=== PATIENT | female | born 1955 | race Caucasian/White ===

== ENCOUNTER 2025-01-04 10:58 | Outpatient (AMB) | payer OTHER, SELFPAY ==
--- OUTSIDE RECORDS SUMMARY | 2025-01-01 13:30 | XMS_ITS | Encounter Summary ---
Author Organization [facility] Address [address] [place] [address] Care Team Providers Care Licensed Final Expense Agents Name Role Phone Nathaniel Felipe MD Primary Care Provider [phone] Encounter Details Date Type Department Care Team ([facility] st Contact Info) Description 01/01/2025 1:30 PM EST Lab Draw Station [address] [address] Acute deep vein thrombosis (DVT) of calf muscle vein of left lower extremity (CMS/HCC V24, CMS/HCC V28); Other acute pulmonary embolism without acute cor pulmonale (CMS/HCC V24, CMS/HCC V28) Social History Tobacco Use Types Packs/Day Years Used Date Smoking Tobacco: Never Smokeless Tobacco: Never Alcohol Use Standard Drinks/Week Comments Yes 0 (1 standard drink = 0.6 oz pur e alcohol) Housing Instability Answer Date Recorde d Are you worried that in the next 2 months you may not have stable housing? No 01/13/2024 Food Access & Nutrition Answer Date Rec orded Do you have access to a vari ety of food including fruits and vegetables? Yes 01/13/2024 Access to Healthcare Answer Date Record ed Within the last 3 months, ho w many times did you visit the emergency department for your medical care? 0 01/13/2024 Health Literacy Answer Date Recorded How often do you need to hav e someone help you when you read instructions, pamphlets, or other written material from your doctor or pharmacy? Sometimes 01/13/2024 Caregiver: How often do you need to have someone help you when you read instructions, pamphlets, or other written material from your doctor or pharmacy? Not on file 01/13/2024 Financial Risk Answer Date Recorded How hard is it for you to pa y for the very basics like food, housing, medical care, and air conditioning / heating? Somewhat hard 01/13/2024 Transportation Answer Date Recorded Has the lack of transportati on kept you from meetings, work, or from getting things needed for daily living? No Has the lack of transportati on kept you from medical appointments or from getting medications? No 01/13/2024 Social Isolation Answer Date Recorded How often do you feel lonely or isolated from those around you? Sometimes 01/13/2024 Food Risk Answer Date Recorded Within the past 12 months we worried whether our food would run out before we got money to buy more. Never true 024 Within the past 12 months th e food we bought just didn't last and we didn't have money to get more. Sometimes true 01/13/2024 Dependent Care Answer Date Recorded Do you need help finding or paying for care for your loved ones. For example, child care leader or elderly care for an older adult? No 01/13/2024 Education Answer Date Recorded Do you think completing more education or training, like finishing a GED, going to college, or learning a trade, would be helpful for you? No 01/13/2024 Employment and Income Answer Date Recor ded During the last four weeks, have you been actively looking for work? No 01/13/2024 Living Situation Answer Date Recorded What is your living situation? Unrecognized valu e 01/13/2024 Comments No Sex and Gender Information Value Date Recorded Sex Assigned at Not on file Legal Sex Female 3:41 PM EST Gender Identity Not on file Sexual Orientation Not on file documented as of this encounter Plan of Treatment Upcoming Encounters Date Type Department Care Team (Late st Contact Info) Description 01/05/2025 1:45 PM EST Office Visit Adult Medicine [address] [phone] Nathaniel Felipe MD [address] [place] [address] 01/10/2025 11:00 AM EST Office Visit [facility] Hematology Oncology [address] [place] [phone] Cynthia Arellano MD [address] [place] [address] 01/15/2025 1:00 PM EST Office Visit Orthopedic Surgery [facility] [address] [phone] Feliciano Smith DPM [address] [phone] 04/12/2025 9:00 AM EST Procedure visit General Surgery [facility] [address] [phone] Uli Leger MD [address] [address] Pending Results Name Type Priority Associated Diagnoses Date /Time Prothrombin [id number] mutation analysis Lab Routine Acute deep vein thrombosis (DVT) of calf muscle vein of left lower extremity (CMS/HCC V24, CMS/HCC V28) Other acute pulmonary embolism without acute cor pulmonale (CMS/HCC V24, CMS/HCC V28) 01/01/2025 1:35 PM EST Factor V leiden Lab Routine Acute deep vein thrombosis (DVT) of calf muscle vein of left lower extremity (CMS/HCC V24, CMS/HCC V28) Other acute pulmonary embolism without acute cor pulmonale (CMS/HCC V24, CMS/HCC V28) 01/01/2025 1:35 PM EST documented as of this encounter Procedures Procedure Name Priority Date/Time Associated Diagnosis Comments PROTEIN S ACTIVITY Routine 01/01/2025 1: 35 PM EST Acute deep vein thrombosis (DVT) of calf muscle vein of left lower extremity (CMS/HCC V24, CMS/HCC V28) Other acute pulmonary embolism without acute cor pulmonale (CMS/HCC V24, CMS/HCC V28) PROTEIN C ACTIVITY Routine 01/01/2025 1: 35 PM EST Acute deep vein thrombosis (DVT) of calf muscle vein of left lower extremity (CMS/HCC V24, CMS/HCC V28) Other acute pulmonary embolism without acute cor pulmonale (CMS/HCC V24, CMS/HCC V28) CARDIOLIPIN ANTIBODIES, IGG, IGM AND IGA Routine 01/01/2025 1:35 PM EST Acute deep vein thrombosis (DVT) of calf muscle vein of left lower extremity (CMS/HCC V24, CMS/HCC V28) Other acute pulmonary embolism without acute cor pulmonale (CMS/HCC V24, CMS/HCC V28) ANTITHROMBIN III ACTIVITY Routine 01/01/2025 1:35 PM EST Acute deep vein thrombosis (DVT) of calf muscle vein of left lower extremity (CMS/HCC V24, CMS/HCC V28) Other acute pulmonary embolism without acute cor pulmonale (CMS/HCC V24, CMS/HCC V28) documented in this encounter Results * Protein C activity (01/01/2025 1:35 PM EST) Protein C Activity 119 70 - 130 % 01/04/2025 10:19 AM EST [facility] Comment: Heparin levels up to 1 IU/mL do not affect test results. Higher levels may cause elevated levels. Test performed at [facility], [address] , [place] [address] Marlen Fernández MD, PhD - Remediation Technician Blood Venous blood specimen / Unknown Venipuncture / Unknown 01/01/2025 1:35 PM EST 01/01/2025 1:35 PM EST us Cynthia Arellano MD LAB BLOOD ORDERABLES Final R esult [facility] [address] [place] [address] * Protein S activity (01/01/2025 1:35 PM EST) Pathologist [facility] Protein S Activity 90 65 - 140 % 2024 10:[address] [facility] Comment: Heparin levels up to 1 IU/mL do not affect test results; higher levels may cause false elevation. Thrombin inhibitors and direct oral anticoagulants may lead to over-estimation of proein S level by this assay. Note that measurement of protein S or free protein S antigen levels would be less affected by medication. Test performed at [facility], [address] [place] [address] Marlen Fernández MD, PhD - Remediation Technician Blood Venous blood specimen / Unknown Venipuncture / Unknown 01/01/2025 1:35 PM EST 01/01/2025 1:35 PM EST Cynthia Arellano MD LAB BLOOD ORDERABLES Final R esult Performing Organization Address [facility] Co de Phone Number [facility] [address] [place] [address] * Antithrombin III activity (01/01/2025 1:35 PM EST) [facility] Antithrombin III Activity 114 80 - 120 % 01/04/2025 10:[address] [facility] Comment: AT3 Activity is affected by thrombin inhibitors. Test performed at [facility], [address] [place] [address] Marlen Fernández MD, PhD - Remediation Technician Blood Venous blood specimen / Unknown Venipuncture / Unknown 01/01/2025 1:35 PM EST 01/01/2025 1:35 PM EST Cynthia Arellano MD LAB BLOOD ORDERABLES Final R esult Performing Organization Address City/[facility]/ZIP Co de Phone Number [facility] [address] [place] [address] * Cardiolipin antibodies, IgG, IgM and IgA (01/01/2025 1:35 PM EST) [facility] Cardiolipin Antibody Screen Negative Negative LAB CHEMISTRY METHOD 01/02/2025 3:08 PM EST [facility] Blood Venous blood specimen / Unknown Venipuncture / Unknown 01/01/2025 1:35 PM EST 01/01/2025 1:35 PM EST us Cynthia Arellano MD LAB BLOOD ORDERABLES Final R esult [facility] [address] [place] [address], documented in this encounter Visit Diagnoses Diagnosis Acute deep vein thrombosis (DVT) of calf muscle vein of left lower extremity (CMS/HCC V24, CMS/HCC V28) Other acute pulmonary embolism without acute cor pulmonale (CMS/HCC V24, CMS/[facility] V28) documented in this encounter Additional Health Concerns Assessment Noted Time PHQ-9 Depression Total Score: 17 05/21/ 025 11:07 AM EDT documented as of this encounter Care Teams Licensed Final Expense Agents Relationship Specialty Start Date End Date Nathaniel Felipe MD [address] [place] [address] PCP - General Internal Medicine 06/24/21 documented as of this encounter
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
[2025-01-04 11:14] VITALS: BMI 40.2
--- OUTSIDE RECORDS SUMMARY | 2025-01-04 13:41 | XMS_ITS | Encounter Summary ---
Author Organization [facility] Address [address] [place] [address] Care Team Providers Care Burnisher And Bumper Name Role Phone Nathaniel Felipe MD Primary Care Provider [phone] Reason for Referral * Imaging (Routine) - Closed Specialty Diagnoses / Procedures Referred By Contac t Referred To Contact Radiology Diagnoses Scalp cyst Procedures US Head Neck Soft Tissue Nathaniel Felipe MD [address] [place] [address] Phone: tel: fax: [address] Phone: tel: Referral ID Status Reason Start Date Expiration Date Visits Re quested Visits Authorized [id number] Closed 12/05/2024 12/05/2025 1 1 Encounter Details Date Type Department Care Team (Late st Contact Info) Description 12/05/2024 Results Follow-Up Adult Medicine [address] [phone] Nathaniel Felipe MD [address] [place] [address] Social History Tobacco Use Types Packs/Day Years [...] for your loved ones. For example, child development assistant or elderly care for an older adult? [...] 1:45 PM EST Office Visit Adult Medicine [facility] [address] [place] [address] Nathaniel Felipe MD [address] [place] [address] 01/10/2025 11:00 AM EST Office Visit [facility] Hematology Oncology [address] [place] [phone] Cynthia Arellano MD [address] [place] [address] 01/15/2025 1:00 PM EST Office Visit Orthopedic Surgery [facility] [address] [phone] Feliciano Smith DPM [address] [phone] 04/12/2025 9:00 AM EST Procedure visit General Surgery [facility] [address] [phone] Uli Leger MD [address] [address] documented as of this encounter Results * US Head Neck Soft Tissue (12/19/2024 2:09 PM EDT) Anatomical Region Laterality Modality Head and Neck Ultrasound 12/19/2024 2:49 PM EDT Impressions 12/19/2024 2:51 PM EDT Area of clinical concern may correspond to sebaceous cyst. Correlate with direct palpation to ensure long-term stability -------- FINAL REPORT -------- Dictated By: Marcos Montero Dictated Date: 12/19/2024 14:49 ET Assigned Physician: Marcos Montero Reviewed and Electronically Signed By: Marcos Montero Signed Date: 12/19/2024 14:51 ET Workstation ID: [id number] Transcribed By: Self Edit Transcribed Date: 12/19/2024 14:49 ET Narrative 12/19/2024 2:51 PM EDT EXAMINATION: US HEAD NECK SOFT TISSUE 12/19/2024 2:09 PM Patient : 1955 CLINICAL DATA/INDICATIONS: Cystic swelling of the scalp/abnormal x-ray COMPARISON: None TECHNIQUE: Multiple grayscale images of the subcutaneous soft tissues of the scalp were obtained in area of clinical concern. FINDINGS: Area of palpable concern corresponds to an ovoid hypoechoic lesion measuring 1.0 x 0.4 x 0.8 cm within the skin surface without vascularity. Procedure Note Marcos Montero MD - 12/19/2024 EXAMINATION: US HEAD NECK SOFT TISSUE 12/19/2024 2:09 PM Patient :1955 CLINICAL DATA/INDICATIONS: Cystic swelling of the scalp/abnormal x-ray COMPARISON: None TECHNIQUE: Multiple grayscale images of the subcutaneous soft tissues ofthe scalp were obtained in area of clinical concern. FINDINGS: Area of palpable concern corresponds to an ovoid hypoechoic lesionmeasuring 1.0 x 0.4 x 0.8 cm within the skin surface withoutvascularity. IMPRESSION: Area of clinical concern may correspond to sebaceous cyst. Correlate withdirect palpation to ensure long-term stability -------- FINAL REPORT -------- Dictated By: Marcos Montero Dictated Date: 12/19/2024 14:49 ET Assigned Physician: Marcos Montero Reviewed and Electronically Signed By: Marcos Montero Signed Date: 12/19/2024 14:51 ET Workstation ID: [id number] Transcribed By: Self Edit Transcribed Date: 12/19/2024 14:49 ET us Nathaniel Felipe MD [facility] PROCEDURES Final Res ult documented in this encounter Visit Diagnoses Diagnosis Scalp cyst- Primary Sebaceous cyst Scalp cyst Sebaceous cyst documented in this encounter Additional Health Concerns Assessment Noted Time PHQ-9 Depression Total Score: 17 05/21/ 025 11:07 AM EDT documented as of this encounter Care Teams Burnisher And Bumper Relationship Specialty Start Date End Date Nathaniel Felipe MD [address] [place] [address] PCP - General Internal Medicine 06/24/21 documented as of this encounter
--- OUTSIDE RECORDS SUMMARY | 2025-01-04 13:41 | XMS_ITS | Encounter Summary ---
Author Organization [facility] Address [address] [place] [address] Care Team Providers Care Allied Health Professional Name Role Phone Nathaniel Felipe MD Primary Care Provider [phone] Reason for Referral * Consultation (Routine) - Closed Specialty Diagnoses / Procedures Referred By Contac t Referred To Contact General Surgery Diagnoses Sebaceous cyst Nathaniel Felipe MD [address] [place] [address] Phone: tel: fax: Josh Lyon MD [address] [address] Phone: tel: fax: Referral ID Status Reason Start Date Expiration Date V isits Requested Visits Authorized [id number] Closed Specialty Services Required 12/19/2024 12/19/2025 12 1 Encounter Details Date Type Department Care Team (Late st Contact Info) Description 12/19/2024 Results Follow-Up General Surgery - [place] [facility] [address] [place] [address] Nathaniel Felipe MD [address] [place] [address] Social History Tobacco Use Types Packs/Day Years [...] care for your loved ones. For example, exceptional children's teacher or elderly care for an older adult? [...] 1:45 PM EST Office Visit Adult Medicine [facility] [address] [place], [place] [phone] Nathaniel Felipe MD [address] [place] [address] 01/10/2025 11:00 AM EST Office Visit [facility] Hematology Oncology [address] [place] [phone] Cynthia Arellano MD [address] [place] [address] 01/15/2025 1:00 PM EST Office Visit Orthopedic Surgery [facility] [address] [phone] Feliciano Smith DPM [address] [phone] 04/12/2025 9:00 AM EST Procedure visit General Surgery [facility] [address] [phone] Uli Leger MD [address] [address] Scheduled Referrals Name Type Priority Associated Diagnoses Order Schedule Ambulatory referral to General Surgery Outpatient Referral Routine Sebaceous cyst 1 Occurrences starting 12/19/2024 until 12/19/2025 documented as of this encounter Visit Diagnoses Diagnosis Sebaceous cyst- Primary documented in this encounter Additional Health Concerns Assessment Noted Time PHQ-9 Depression Total Score: 17 025 11:07 AM EDT documented as of this encounter Care Teams Allied Health Professional Relationship Specialty Start Date End Date Nathaniel Felipe MD [address] [place] [address] PCP - General Internal Medicine 06/24/21 documented as of this encounter
--- OUTSIDE RECORDS SUMMARY | 2025-01-04 13:42 | XMS_ITS | Clinical Summary ---
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 procedure / Unknown Non-blood Collection / Unknown 09/11/2024 1:10 PM EDT 09/11/2024 1:10 PM EDT us Nathaniel Felipe MD LAB URINE ORDERABLES Final Result Performing Organization Address City/[facility]/ZIP Co de Phone Number [facility] [address] [place] [address], [place] [phone] * Hemoglobin A1c (09/11/2024 1:10 PM EDT) Pathologist [facility] Hemoglobin A1C 6.4 <6.5 % LAB CHEMISTRY METHOD 09/11/2024 9:[address] [facility] Mean Bld Glu Estim. 137 mg/dL LAB CHEMISTRY METHOD 09/11/2024 9:[address] [facility] Blood Venous blood specimen / Unknown Venipuncture / Unknown 09/11/2024 1:10 PM EDT 09/11/2024 1:10 PM EDT us Nathaniel Felipe MD LAB BLOOD ORDERABLES Final Result Performing Organization Address [facility]/ZIP Co de Phone Number [facility] [address] [place] [address], [place] [phone] * (ABNORMAL) Comprehensive metabolic panel (09/11/2024 1:10 PM EDT) Sodium 140 133 - 145 mmol/L LAB CHEMISTRY METHOD 09/11/2024 8:[address] [facility] Potassium 4.5 3.5 - 5.5 mmol/L LAB CHEMISTRY METHOD 09/11/2024 8:[address] [facility] Chloride 108 96 - 110 mmol/L LAB CHEMISTRY METHOD 09/11/2024 8:[address] [facility] CO2 28 21 - 32 mmol/L LAB CHEMISTRY METHOD 09/11/2024 8:[address] [facility] Anion Gap 4 3 - 11 LAB CHEMISTRY METHOD 09/11/2024 8:[address] [facility] Glucose 121(H) 70 - 100 mg/dL LAB CHEMISTRY METHOD 09/11/2024 8:[address] [facility] BUN 22 5 - 25 mg/dL LAB CHEMISTRY METHOD 09/11/2024 8:[address] [facility] Creatinine 0.86 0.50 - 1.10 mg/dL LAB CHEMISTRY METHOD 09/11/2024 8:[address] [facility] eGFR 74 >=60 mL/min/1. 73m2 LAB CHEMISTRY METHOD 09/11/2024 8:[address] [facility] Comment:Calculation based on the Chronic Kidney Disease Epidemiology Collaboration (CKD-EPI) equation refit without adjustment for race. BUN/Creatinine Ratio 25.6 LAB CHEMISTRY METHOD 09/11/2024 8:[address] [facility] Calcium 9.2 8.5 - 10.5 mg/dL LAB CHEMISTRY METHOD 09/11/2024 8:[address] [facility] AST (SGOT) 25 10 - 42 unit/L LAB CHEMISTRY METHOD 09/11/2024 8:[address] [facility] ALT (SGPT) 40 10 - 60 unit/L LAB CHEMISTRY METHOD 09/11/2024 8:[address] [facility] Alkaline Phosphatase 93 42 - 121 unit/L LAB CHEMISTRY METHOD 09/11/2024 8:[address] [facility] Total Protein 6.5 6.0 - 8.0 g/dL LAB CHEMISTRY METHOD 09/11/2024 8:[address] [facility] Albumin 3.6 3.2 - 5.0 g/dL LAB CHEMISTRY METHOD 09/11/2024 8:[address] [facility] Total Bilirubin 0.2 0.0 - 1.4 mg/dL LAB CHEMISTRY METHOD 09/11/2024 8:[address] [facility] Blood Venous blood specimen / Unknown Venipuncture / Unknown 09/11/2024 1:10 PM EDT 09/11/2024 1:10 PM EDT us Nathaniel Felipe MD LAB BLOOD ORDERABLES Final Result [facility] [address] [place] [address], [place] [phone] * MG Mammo Digital Screening w Malcom bilat (01/26/2024 1:27 PM EST) Anatomical Region Laterality Modality Breast Bilateral Mammography 01/27/2024 8:03 AM EST Impressions 01/27/2024 8:18 AM EST BILATERAL BREASTS: Negative, no evidence of malignancy. Normal interval follow- up is recommended in 12 months. BREAST DENSITY: B - There are scattered areas of fibroglandular density. BI-RADS CATEGORY: 1 - NEGATIVE RECOMMENDATION: Screening bilateral mammogram is recommended in 1 year. Mammo Location: [facility], [address] [place] [address], [id number], . -------- FINAL REPORT -------- Dictated By: Bryant Prabhakar Dictated Date: 01/27/2024 08:03 ET Assigned Physician: Bryant Prabhakar Reviewed and Electronically Signed By: Bryant Prabhakar Signed Date: 01/27/2024 08:18 ET Workstation ID: [id number] Transcribed By: Self Edit Transcribed Date: 01/27/2024 08:03 ET Narrative 01/27/2024 8:18 AM EST STUDY: Bilateral screening mammography with tomosynthesis and CAD TECHNIQUE: Bilateral full-field digital screening mammography is obtained and read in conjunction with computer-aided detection. Tomosynthesis as well as 2-D C view imaging were obtained. COMPARISON: Comparison made to multiple prior, most recent July 08, 2017 at [facility], and most remote June 19, 2015 at [facility]. Additional history: A diagnostic mammogram/ultrasound workup was performed on July 08, 2017 for a left breast palpable concern at [facility]. The report describes probable epidermoid inclusion cyst correlate with the palpable concern in the left breast, assessed as BIRADS 3 and with recommendation to short-term follow-up left breast ultrasound. Today, patient is asymptomatic. BILATERAL BREASTS: No significant masses, suspicious calcifications or other abnormalities are seen. Procedure Note Bryant Prabhakar MD - 01/27/2024 STUDY: Bilateral screening mammography with tomosynthesis and CAD TECHNIQUE: Bilateral full-field digital screening mammography is obtainedand read in conjunction with computer-aided detection. Tomosynthesis aswell as 2-D C view imaging were obtained. COMPARISON: [facility], and most remote June 19, 2015 at [facility]. Additional history: A diagnostic mammogram/ultrasound workup was performedon July 08, 2017 for a left breast palpable concern at [facility]. Thereport describes probable epidermoid inclusion cyst correlate with thepalpable concern in the left breast, assessed as BIRADS 3 and withrecommendation to short-term follow-up left breast ultrasound. Today,patient is asymptomatic. BILATERAL BREASTS: No significant masses, suspicious calcifications orother abnormalities are seen. IMPRESSION: BILATERAL BREASTS: Negative, no evidence of malignancy. Normal intervalfollow-up is recommended in 12 months. BREAST DENSITY: B - There are scattered areas of fibroglandular density. BI-RADS CATEGORY: 1 - NEGATIVE RECOMMENDATION: Screening bilateral mammogram is recommended in 1 year. Mammo Location: [facility], [address] [place] [address], [id number], . -------- FINAL REPORT -------- Dictated By: Bryant Prabhakar Dictated Date: 01/27/2024 08:03 ET Assigned Physician: Bryant Prabhakar Reviewed and Electronically Signed By: Bryant Prabhakar Signed Date: 01/27/2024 08:18 ET Workstation ID: [id number] Transcribed By: Self Edit Transcribed Date: 01/27/2024 08:03 ET us Nathaniel Felipe MD IMG BI PROCEDURES Final Res ult * (ABNORMAL) Lipid panel with reflex to direct LDL (01/19/2024 10:07 AM EST) Cholesterol 196 0 - 200 mg/dL LAB CHEMISTRY METHOD 01/19/2024 4:[address] [facility] Triglycerides 87 0 - 150 mg/dL LAB CHEMISTRY METHOD 01/19/2024 4:05 PM [facility] HDL 67 >=40 mg/dL LAB CHEMISTRY METHOD 01/19/2024 4:[address] [facility] LDL Calculated 112(H) 0 - 100 mg/dL LAB CHEMISTRY METHOD 01/19/2024 4:[address] [facility] VLDL Cholesterol Boo 17.4 mg/dL LAB CHEMISTRY METHOD 01/19/2024 4:[address] [facility] Non HDL Chol. (LDL+VLDL) 129 <145 mg/dL LAB CHEMISTRY METHOD 01/19/2024 4:[address] [facility] Chol/HDL Ratio 2.9 0.0 - 4.4 LAB CHEMISTRY METHOD 01/19/2024 4:05 PM [facility] Blood Venous blood specimen / Unknown Venipuncture / Unknown 01/19/2024 10:07 AM EST 01/19/2024 10:07 AM EST us Nathaniel Felipe MD LAB BLOOD ORDERABLES Final Result [facility] [address] [place] [address], [place] [phone] * Diabetes Foot Exam (12/16/2022) Diabetes: Annual Foot Exam Abstracted Historical Provider HEALTH MAINTENANCE Final Result * Colonoscopy (02/04/2017) Colonoscopy No Interpretation , Abstracted Anatomical Region Laterality Modality Other Historical Provider HEALTH MAINTENANCE Final Result from Last 3 Months or Most Recently Relevant to Health Maintenance Insurance [employer] MEDICARE [facility] Care Teams Reed Polisher Relationship Specialty Start Date End Date Nathaniel Felipe MD [address] [place] [address] PCP - General Internal Medicine 06/24/21
== END 2025-01-04 12:05 | disposition home or self-care (01) ==
LOC: HO.HPHYS 10:59
PROVIDERS: PCP Internal Medicine; Visit Provider Physician Assistant
DX: M54.16 Radiculopathy, lumbar region (principal); M47.816 Spondylosis without myelopathy or radiculopathy, lumbar region
CPT/HCPCS: 99204